=== PATIENT | female | born 2000 | race Caucasian/White ===

== ENCOUNTER 2024-02-12 15:08 | Outpatient (RCR) | payer MEDICAID, SELFPAY ==
--- NOTE | 2024-01-29 15:47 | XR_ITS ---
Examination: Biophysical profile, ultrasound Date and time of exam: January 29, 2024 1610 hours INDICATIONS: Gestational diabetes elevated BMI Technique: Multiple transabdominal sonographic images of the pelvis abdomen obtained. Attention is directed to the breathing movement, gross body movement, amniotic fluid volume and tone. Findings: Amniotic fluid index 12.1 cm Total biophysical profile is 8 of 8. breathing movement is 2. Gross body movement is 2. tone is 2. Qualitative amniotic fluid volume is 2 Impression: Biophysical profile is 8 of 8.
[2024-01-29 16:27] VITALS: BP 108/65; PULSE 116; RESP 18
--- NOTE | 2024-02-05 15:13 | XR_ITS ---
Examination: Biophysical profile, ultrasound Date and time of exam: February 05, 2024 1621 hours INDICATIONS: NST, labor evaluation, maternal obesity, gestational diabetes Technique: Multiple transabdominal sonographic images of the pelvis abdomen obtained. Attention is directed to the breathing movement, gross body movement, amniotic fluid volume and tone. Findings: Amniotic fluid index 13.9 cm Total biophysical profile is 8 of 8. breathing movement is 2. Gross body movement is 2. tone is 2. Qualitative amniotic fluid volume is 2 Impression: Biophysical profile is 8 of 8.
[2024-02-05 16:46] VITALS: BP 113/65; PULSE 100; RESP 16; TEMP 36.7
--- NOTE | 2024-02-12 15:15 | XR_ITS ---
Examination: Biophysical profile, ultrasound Date and time of exam: February 12, 2024 at 1524 hours INDICATIONS: NST, labor evaluation, diagnosis gestational diabetes Technique: Multiple transabdominal sonographic images of the pelvis abdomen obtained. Attention is directed to the breathing movement, gross body movement, amniotic fluid volume and tone. Findings: 17.2 amniotic fluid index Total biophysical profile is 8 of 8. breathing movement is 2. Gross body movement is 2. tone is 2. Qualitative amniotic fluid volume is 2 Impression: Biophysical profile is 8 of 8.
[2024-02-12 15:54] VITALS: BP 108/69; PULSE 104; RESP 16
== END 2024-02-12 23:59 | disposition home or self-care (01) ==
LOC: S4S1 15:08
PROVIDERS: Referring Provider Advanced Practice Midwife; Visit Provider Advanced Practice Midwife
DX: O24.410 Gestational diabetes mellitus in pregnancy, diet controlled (principal); O99.213 Obesity complicating pregnancy, third trimester; E66.9 Obesity, unspecified; O09.93 Supervision of high risk pregnancy, unspecified, third trimester; Z3A.38 38 weeks gestation of pregnancy
CPT/HCPCS: 59025; 76819

== ENCOUNTER 2024-02-17 20:55 | Inpatient (IN) | payer MEDICAID, SELFPAY ==
[2024-02-17 21:00] VITALS: BMI 19.8
[2024-02-17 21:12] VITALS: BP 115/67; PULSE 100; RESP 17; TEMP 37.3
--- NOTE | 2024-02-17 21:21 | XR_ITS ---
Examination: Complete OB ultrasound greater than 14 weeks Date and time of exam: February 17, 2024 at 2131 hrs. Indications: Labor induction today Findings: Viable intrauterine single fetus with single amniotic sac presentation cephalic Cardiac motion 158 BPM Placenta posterior grade 3 Umbilical cord insertion seen Amniotic fluid index 19 cm spine anterior Cervix 3.4 cm Ovaries obscured by bowel gas. Composite estimated gestational age based on BPD, head circumference, abdominal circumference, femur length is 37 weeks 5 days Estimated weight 3209 g. Survey of intracranial anatomy, spinal anatomy, abdominal anatomy, four-chamber heart performed with no abnormalities identified. Impression: Viable intrauterine gestation cephalic presentation.
[2024-02-17 22:00] LABS: Basophils # (Auto) 0.1 Thou/mm3 (0.0-0.2); Basophils % (Auto) 0 % (0-2.5); Eosinophils # (Auto) 0.1 Thou/mm3 (0.0-0.5); Eosinophils % (Auto) 1 % (0-10); Hemoglobin 9.4 g/dL (12.0-16.0); Immature Granulocytes % (Auto) 1 % (0-0); Immature Granulocytes Auto 0.14 Thou/mm3 (0.00-0.00); Lymphocytes # (Auto) 1.9 Thou/mm3 (1.0-4.8); Lymphocytes % (Auto) 14 % (10-50); Mean Corpuscular HGB Conc 33.6 g/dl (31.0-37.0); Mean Corpuscular Hemoglobin 28.1 pg (25.0-35.0); Mean Corpuscular Volume 84 fL (80-100); Monocytes # (Auto) 1.1 Thou/mm3 (0.0-0.8); Monocytes % (Auto) 8 % (0-12); Neutrophils # (Auto) 10.4 Thou/mm3 (1.8-7.7); Neutrophils % (Auto) 76 % (37-80); Nucleated Red Blood Cell % 0 /100 WBC (0); Platelet Count 308 Thou/mm3 (140-440); RDW Standard Deviation 44.4 fL (36.4-46.3); Red Blood Count 3.34 Miln/mm3 (4.00-5.20); White Blood Count 13.7 Thou/mm3 (3.6-11.0)
[2024-02-17] MEDS: MISOPROSTOL 50 mCg TABLET PO (22:52)
[2024-02-17 23:08] LABS: Syphilis Nonreactive (Nonreactive)
[2024-02-18] VITALS (9 sets, daily range): BP systolic 102–117; BP diastolic 55–67; PULSE 80–115; TEMP 36.6–36.9
[2024-02-18] MEDS: MISOPROSTOL 50 mCg TABLET PO ×3 (02:52→13:26)
[2024-02-18 05:59] LABS: Amphetamine/Metham Scrn,Ur OB Negative (Negative); Benzoylecgonine Screen, Ur OB Negative (Negative); Opiate Screen,Urine OB Negative (Negative); THC Screen,Urine OB Negative (Negative)
--- NOTE | 2024-02-18 08:08 | ESHP_ITS ---
Documentation for date of: 02/18/24 OB Labor/Induct. HPI History of Present Illness Chief complaint: induction : 3 Para: 1 Term pregnancies: 1 pregnancies: 0 Living children: 0 History of Abortions: Spontaneous and Elective: 1 History of Vaginal deliveries: 1 History of sections: No History of : No Date of last menstrual period: 05/18/23 JERI: 02/21/24 Gestational Age (weeks): 39 Gestational Age (days): 4 Gestational age based on last menstrual period: 39 Indication for induction: medical complication (gdm) History of present illness: This is a 23-year-old 2 para 1 admit to labor and delivery for induction of labor. Patient been followed at [facility] care. First visit 13 weeks. Last period May 18, 2023. This gave EDC 02/21/2024. Patient had poor dates her first ultrasound was in August. Patient was 13 weeks and so dates were changed. Denies social habits. Denies surgery. Denies chronic illness. Patient has been followed with history of GDM. Diet controlled. She has been getting weekly NST BPP as well. A+, antibody screen negative, RPR nonreactive, rubella immune, hepatitis B negative hepatitis C negative, and HIV negative, GC and Chlamydia were negative. Patient had a abnormal 1 hour. And abnormal 3-hour. And her GBS is negative History of Present Dating criteria: LMP confirmed by 1st trimester US Adequate Care: Yes Ultrasounds: normal 1st trimester US and normal mid trimester US Obstetrical complications: gestational diabetes Medical complications: none Labs Labs: Negative: Hepatitis B, HIV, Chlamydia, Gonorrhea and Group Beta Strep Review of Systems Review of Systems Systems Reviewed: All systems reviewed, normal except as documented Past Medical History Surgical History SURGICAL: Negative Section Meds Home Medications and Allergies Home Medications ?Medication ?Instructions ?Recorded ?Confirmed ?Type vitamins-iron fumarate 27 1 tab PO QDAY 12/28/18 02/18/24 History mg iron-folic acid 0.8 mg tablet ( Vitamin) Allergies Allergy/AdvReac Type Severity Reaction Status Date / Time latex Allergy Mild RASH Verified 01/03/19 21:17 TAPE Allergy Mild RASH Uncoded 01/03/19 21:17 OB Exam Physical Exam Vital signs: Temp Pulse Resp BP 98.4 F 89 17 113/63 02/18/24 06:02 02/18/24 07:07 02/17/24 21:12 02/18/24 07:07 Narrative: Vital signs are stable afebrile. Normal heart rate and rhythm. Lungs clear no wheezes. Gravid abdomen. Gynecoid pelvis. Estimated weight 8 pounds 8 ounces. Vaginal exam on admission was 60%, 1, -2. Cervix was mid and medium. And vertex. heart rate is category 1 accelerations and moderate variability and occasional contraction Detailed Labor and Delivery Exam Dilation (cm): 1 Effacement (%): 60 Cervix position: mid station: -2 Consistency: medium Presentation: Vertex Cervical ripeness score: 5 Membranes: intact Baseline heart rate: 145 monitor accelerations: 15x15 monitor decelerations: None care home variability: Moderate (11-25) Contraction frequency (min): occ Contraction duration (sec): 30 Tachysystole: No Contraction intensity: Mild OB Results Labs 02/17/24 21:20 Labs: Short CBC 02/17/24 Range/Units 21:20 WBC 13.7 H (3.6-11.0) Thou/mm3 Hgb 9.4 L (12.0-16.0) g/dL Hct 28.0 L (36.0-46.0) % Plt Count 308 (140-440) Thou/mm3 Impressions Impression: GDM induction OB Assessment & Plan Assessment and Plan (1) Normal labor and delivery: Status: Acute Additional Plan Induction method: per misoprostol protocol Plan: induction, anticipate NVD and consult MD evangelista
[2024-02-18] MEDS: MEPERIDINE INJ 50 MG/ML VIAL 75 MG IM (15:38)
[2024-02-18] MEDS: PROMETHAZINE INJ 25 MG/ML VIAL 12 MG IM (15:38)
[2024-02-19] VITALS (200 sets, daily range): BP systolic 86–138; BP diastolic 51–100; PULSE 67–188; RESP 17–18; TEMP 36.7–37.4; O2SAT 82–100; BMI 43.9
[2024-02-19] MEDS: MISOPROSTOL 50 mCg TABLET PO ×3 (03:00→13:58)
[2024-02-19] MEDS: RINGERS LACTATED 1000 ML 1,000 ML 125 ML IV (06:58)
--- NOTE | 2024-02-19 08:56 | PD.LDPN ---
Documentation for date of: 02/19/24 OB Labor Progress Note Pelvic Exam Dilation (cm): 3 Effacement (%): 60 station: -2 Amniotic membrane status: Intact Contractions Monitor mode: External Contraction frequency: q5 Contraction duration: 30 Contraction phase: Resting Contraction intensity: Mild Status status: Category l Assessment and Plan Assessment: induction ongoing Plan OB labor note: continuous present management CNM Management MD Consulted (describe details below): Yes
[2024-02-19] MEDS: fentaNYL CIT INJ 50 mCg/ML AMP 2ML IVP (13:59)
[2024-02-19] MEDS: MEPERIDINE INJ 50 MG/ML VIAL 75 MG IM (15:30)
[2024-02-19] MEDS: PROMETHAZINE INJ 25 MG/ML VIAL 12.5 MG IM (15:34)
[2024-02-19] MEDS: OXYTOCIN in NS 20 units 20 UNIT/1,000 ML BAG 125 UNIT IV (20:59)
[2024-02-19] MEDS: MISOPROSTOL 200 mCg TABLET 800 MCG PR (21:05)
[2024-02-19] MEDS: OXYTOCIN INJ 10 UNIT/ML VIAL IM (21:05)
[2024-02-19] MEDS: TRANEXAMIC ACID 1,000 MG IVPB 1,000 MG/100 ML BAG 200 MG IV (21:30)
--- NOTE | 2024-02-19 21:42 | OBDSUM_ITS ---
Data (Ellis) Data Hx Section: No : 3 Para: 1 Term: 1 : 0 : 1 Delivery Data (Ellis) Labor Data Stimulated/Augmented: No Induction: Yes Method: Cytotec ROM Date: 02/19/24 ROM Time: 17:05 Rupture Type: SROM Amniotic Fluid: Clear Delivery Data EDC: 02/21/24 EDC calculated by:: LMP/early US confirmation Labor Onset Stage 1 Date: 02/19/24 Labor Onset Stage 1 Time: 18:30 Labor Onset Stage 2 Date: 02/19/24 Labor Onset Stage 2 Time: 18:30 Delivery Date: 02/19/24 Delivery Time: 20:57 Gestational age (weeks): 39 Gestational age (days): 4 Placenta Delivery Date: 02/19/24 Placenta Delivery Time: 21:01 Delivered by: Viki Steele Delivery nurse: Lucrecia Kamara Other staff at delivery: Nursery Nurse Other staff at delivery: Lauren Dennis Delivery Method Delivery: Vaginal Delivery Type: Spontaneous Presentation: Vertex Position: OA Anesthesia Type Primary Anesthesia: Epidural Delivery Room Medications Intrapartum Medications: Narcotics and Tocolytics Post Delivery Medications: Tocolytics and Cytotec Post Delivery Medications N/A: No Placenta Placenta Delivery: Spontaneous (inspected placenta for completeness, intact, intact membranes) Placenta Cultures Obtained: No Placenta Sent for Examination: No Episiotomy Episiotomy: None Lacerations #1: Perineal: 1st degree (PU) Perineal repair Sutures used for repair: 3.0 Vicryl EBL Estimated blood loss (ml): 400 Umbilical Cord Umbilical Vessels: 3 Nuchal Cord: None Body Cord: None Data (Ellis) [place] Data Gender: Female Infant Weight Grams: 3730 1 Minute Total: 8 5 Minute Total: 9
[2024-02-19] MEDS: IBUPROFEN TAB 400 MG TABLET 800 MG PO (22:47)
[2024-02-20] VITALS (7 sets, daily range): BP systolic 104–114; BP diastolic 69–79; PULSE 71–99; RESP 16–20; TEMP 36.5–36.8; O2SAT 97–98
[2024-02-20] MEDS: TRANEXAMIC ACID 1,000 MG IVPB 1,000 MG/100 ML BAG 200 MG IV (01:02)
[2024-02-20] MEDS: ACETAMINOPHEN 325 MG TABLET 650 MG PO (01:02)
[2024-02-20 03:56] LABS: Basophils % (Auto) 0 % (0-2.5); Eosinophils % (Auto) 0 % (0-10); Hematocrit 26.6 % (36.0-46.0); Hemoglobin 9.1 g/dL (12.0-16.0); Immature Granulocytes % (Auto) 1 % (0-0); Lymphocytes # (Auto) 1.5 Thou/mm3 (1.0-4.8); Lymphocytes % (Auto) 9 % (10-50); Mean Corpuscular HGB Conc 34.2 g/dl (31.0-37.0); Mean Corpuscular Hemoglobin 28.7 pg (25.0-35.0); Mean Corpuscular Volume 84 fL (80-100); Monocytes # (Auto) 1.1 Thou/mm3 (0.0-0.8); Monocytes % (Auto) 7 % (0-12); Neutrophils # (Auto) 14.5 Thou/mm3 (1.8-7.7); Neutrophils % (Auto) 84 % (37-80); Nucleated Red Blood Cell % 0 /100 WBC (0); Platelet Count 251 Thou/mm3 (140-440); RDW Standard Deviation 43.8 fL (36.4-46.3); Red Blood Count 3.17 Miln/mm3 (4.00-5.20); White Blood Count 17.3 Thou/mm3 (3.6-11.0)
[2024-02-20] MEDS: DOCUSATE SOD 100 MG CAPSULE PO (09:00)
[2024-02-20] MEDS: IBUPROFEN TAB 400 MG TABLET 800 MG PO ×2 (09:00→16:46)
--- NOTE | 2024-02-20 13:27 | PD.LDPPPRG ---
Subjective Subjective Interval history: No complaints of pain. No dizziness. Bonding and breast-feeding Exam Vital Signs Temp Pulse Resp BP Pulse Ox O2 Del Method 98.2 F 80 18 114/79 97 Room Air 02/20/24 09:00 02/20/24 08:00 02/20/24 08:00 02/20/24 08:00 02/20/24 08:00 02/20/24 08:00 Narrative Exam Vital signs stable afebrile. Breasts are soft. Fundus firm below the umbilicus. Perineum is intact no swelling. Laceration well-approximated small lochia. Uterus is below umbilicus. Negative Homans' sign. 2+ DTRs. Objective Labs 02/20/24 03:41 Labs: Laboratory Results - last 24 hr 02/20/24 03:41 WBC 17.3 H RBC 3.17 L Hgb 9.1 L Hct 26.6 L MCV 84 MCH 28.7 MCHC 34.2 RDW Std Deviation 43.8 Plt Count 251 D Neut % (Auto) 84 H Lymph % (Auto) 9 L [place] % (Auto) 7 Eos % (Auto) 0 Baso % (Auto) 0 Neut # (Auto) 14.5 H Lymph # (Auto) 1.5 [place] # (Auto) 1.1 H Eos # (Auto) 0.0 Baso # (Auto) 0.0 Immature Gran # (Auto) 0.10 H Absolute Nucleated RBC 0.00 Immature Gran % 1 H Nucleated RBC % 0 Assessment & Plan Problem List (1) Normal labor and delivery: Status: Acute Assessment Comment Assessment comment: 24 hr pp Plan Comment Plan Comment: Discharge home with baby. Continue vitamins and iron. Tylenol or ibuprofen for pain. Return in 2 weeks visit. Discussed ER precautions and parameters. I discussed signs symptoms of infection with patient when to return to the ER. And discussed danger signs and symptoms. Rest discussed wound care increase fluids Time Spent With Patient Time: Total time spent is greater than 50% in coordination of care (as documented) at patient's floor/unit and/or counseling patient:
--- NOTE | 2024-02-20 13:28 | PD.LDDS ---
DS: Providers Provider Date of admission: 02/17/24 20:55 Primary care physician: Tyler Lopez MD Admitting Provider: Viki Steele CNM Attending Provider on Admission: Reji Reyna MD Consults: 02/17/24 22:10 Referral Smoking Cessation Counseling Routine Comment: Smoking Cessation Education Needed 02/19/24 23:36 Referral Routine Comment: Attending Provider on DC: Viki Steele CNM Discharging Provider: Viki Steele CNM DS: Diagnosis Problem List Completed Was Problem List Reviewed/Reconciled?: Yes Summary/Hosp Course Brief History: This is a 23-year-old 2 para 1 admit to labor and delivery for induction of labor. Patient been followed at [facility] care. First visit 13 weeks. Last period May 18, 2023. This gave EDC 02/21/2024. Patient had poor dates her first ultrasound was in August. Patient was 13 weeks and so dates were changed. Denies social habits. Denies surgery. Denies chronic illness. Patient has been followed with history of GDM. Diet controlled. She has been getting weekly NST BPP as well. A+, antibody screen negative, RPR nonreactive, rubella immune, hepatitis B negative hepatitis C negative, and HIV negative, GC and Chlamydia were negative. Patient had a abnormal 1 hour. And abnormal 3-hour. And her GBS is negative Peripartum Data Delivery Method: Normal Vaginal Delivery Episiotomy Description: None Laceration Description: yes (1st and PU) Time Spent with Patient Time attestation: Total time spent providing and/or coordinating discharge services: Exam Vital Signs Temp Pulse Resp BP Pulse Ox O2 Del Method 98.2 F 80 18 114/79 97 Room Air 02/20/24 09:00 02/20/24 08:00 02/20/24 08:00 02/20/24 08:00 02/20/24 08:00 02/20/24 08:00 Discharge Plan Plan Patient Disposition: HOME (Self Care) Prescriptions/Referrals Prescriptions/Med Rec: No Action Vitamin 27 mg iron- 0.8 mg Tablet 1 tab PO QDAY Referrals: Tyler Lopez MD [Primary Care Provider] - Patient/Caregiver Discharge Instructions Print Language: Romanian Activity Restrictions/Additional Instructions: Discharge home with baby. Continue vitamins and iron. Patient may take Tylenol or ibuprofen for pain. I discussed danger signs symptoms with patient. Discussed ER. Precautions and parameters. And I discussed signs and symptoms of infection as well. Increase fluids. Rest. And return in 2 weeks visit Stand Alone Forms: Delisa Award Info., Patient Portal Info Letter Discharge Order Discharge Orders: Discharge (Routine); Ordered 02/20/24 Ordered By: Viki Steele Planned Discharge Date 02/20/24
[2024-02-21 01:55] VITALS: BP 111/75; PULSE 73; RESP 18; TEMP 36.5; O2SAT 97
[2024-02-21 08:20] VITALS: BP 115/78; PULSE 94; RESP 15; TEMP 36.9; O2SAT 98
--- NOTE | 2024-02-21 11:00 | PC.SS ---
DRAW FIRE OPERATOR conducted bedside contact with the patient to address nursing referral indicating patient scored a 12 on post- depression screening. DRAW FIRE OPERATOR introduced self, role and basis of contact. Patient denied possession of depression at current time. Patient denied history of mental health. Patient denies possessing a history of mental health, reports no current possession of depression or anxiety. , Ocyra; is the patient?s second child. Other child is 5 years old. Patient resides with FOB, Mj Blunt. FOB to be involved with rearing of the . Patient is aligned with WIC, SNAP and TANF. OB services provided by Viki Steele. Patient denies history of alcohol/drug abuse. Patient denies CWS intervention. Patient denies episodes of domestic violence. Patient has access to appropriate supplies and equipment; to include a car seat. FOB will provide transportation upon discharge. Patient describes possessing support system consisting of FOB and extended family. DRAW FIRE OPERATOR provided the patient with community resources to include Parenting Network and Warm Line. No further intervention required at this time, foster care social worker will be available to address any further concerns. DRAW FIRE OPERATOR updated bedside nurse.
== END 2024-02-21 14:05 | disposition home or self-care (01) | DRG 560 ==
LOC: S4SX 02-19 13:10 → S4NX 02-20 00:49
PROVIDERS: Admitting Provider Advanced Practice Midwife; PCP Family Medicine; Visit Provider Obstetrics & Gynecology
DX: O24.420 Gestational diabetes mellitus in childbirth, diet controlled (principal); Z37.0 Single live birth; O70.0 First degree perineal laceration during delivery; Z3A.39 39 weeks gestation of pregnancy
CPT/HCPCS: 36415; 59409; 76805; 80307; 85025; 86780; 86850; 86900; 86901; J2175; J2550; J2590; J2795; J3010; J3490; J7120; S0191; A9270